=== PATIENT | female | born 1995 | race Caucasian/White ===

== ENCOUNTER 2020-02-09 12:22 | Emergency (ER) | payer BC, OTHER ==
[2020-02-09 12:40] VITALS: O2SAT 96
[2020-02-09] MEDS ORDERED: SODIUM CHLORIDE 0.9% 1000ML 1,000 ML IVS ONE (12:52)
[2020-02-09] MEDS ORDERED: ONDANSETRON INJ 4 MG/2 ML VIAL IV ONE ×2 (12:52→14:44)
--- NOTE | 2020-02-09 12:59 | ED.PDOC ---
History of Present Illness - General Chief Complaint: GI Problem Stated Complaint: nausea/vomiting Time Seen by Provider: 02/09/20 12:52 Information Source: patient Exam Limitations: no limitations - History of Present Illness Initial Comments: 24 yo F who presents for n/v and associated periumbilical abd pain described as cramping in nature, intermittent, no radiation. Remote hx of cholecystectomy. Denies f/c, cough, congestion, CP, SOB, diarrhea, constipation, urinary sx, COVID exposure. Review of Systems - Review of Systems Constitutional: Denies: chills, fever EENTM: Denies: blurred vision, double vision, nose congestion, throat pain Respiratory: Denies: cough, orthopnea, short of breath, wheezing Cardiology: Denies: chest pain, edema, palpitations, syncope Gastrointestinal/Abdominal: States: abdominal pain, nausea, vomiting. Denies: constipation, diarrhea Genitourinary: Denies: dysuria, frequency, hematuria Musculoskeletal: Denies: back pain, neck pain Skin: Denies: lesions, rash Neurological: Denies: headache, numbness, weakness Endocrine: Denies: increased thirst, increased urine Past Medical History (General) - Patient Medical History Hx Seizures: No Hx Stroke: No Hx Dementia: No Hx Asthma: No Hx of COPD: No Hx Cardiac Disorders: No Hx Congestive Heart Failure: No Hx Pacemaker: No Hx Hypertension: No Hx Thyroid Disease: No Hx Diabetes: Yes - gest diabetes Hx Gastroesophageal Reflux: No Hx Renal Disease: No Hx Cancer: No Hx of HIV: No Hx Hepatitis C: No Hx MRSA: No Surgical History: cholecystectomy - Vaccination History Hx Tetanus, Diphtheria Vaccination: Yes Hx Influenza Vaccination: No Hx Pneumococcal Vaccination: No - Social History Hx Tobacco Use: Yes Hx Chewing Tobacco Use: No Hx Alcohol Use: Yes Hx Substance Use: No Hx Substance Use Treatment: No Hx Depression: No Hx Physical Abuse: No Hx Emotional Abuse: No Hx Suspected Abuse: No - Activities of Daily Living Hospice Agency (if applicable):: None - Female History Hx Last Menstrual Period: 05/09/14 Patient : Yes Expected Date of Delivery:: 02/13/15 Family Medical History - Family History Father Name: Mauri Age (years): 52 Living Status: Still Living Hx Family Asthma: Yes Age of Onset (years of age): 50 Hx Family Congestive Heart Failure: No Hx Family Hypertension: No Hx Family Stroke: No Hx Cardiac Disease: No Hx Family Diabetes: Yes - type 2 Age of Onset (years of age): 52 Hx Family Cancer: No Grandparents Name: Nikky Age (years): 60 Living Status: Still Living Hx Family Asthma: Yes Age of Onset (years of age): unk Hx Cardiac Disease: Yes Age of Onset (years of age): 60 Hx Family Diabetes: Yes Age of Onset (years of age): 30 Mother Family History: No Known Name: Winter Gibbons Age (years): 42 Living Status: Still Living Hx Family Asthma: No Hx Family Congestive Heart Failure: No Hx Family Hypertension: Yes Age of Onset (years of age): unk Hx Family Stroke: No Hx Cardiac Disease: No Hx Family Diabetes: No Hx Family Cancer: Yes - Breast CA 1989, cervical CA 1993 Sister Name: chadd Age (years): 25 Living Status: Still Living Hx Family Cancer: Yes - hx of cevical cancer 2013 Age of Onset (years of age): 24 Physical Exam - Physical Exam General Appearance: Alert, Comfortable, No apparent distress, Well Developed, Well Nourished Eyes, Ears, Nose, Throat Exam: normal ENT inspection Neck: full range of motion, supple Respiratory: chest non-tender, lungs clear, normal breath sounds, no respiratory distress, no accessory muscle use Cardiovascular/Chest: normal peripheral pulses, regular rate, rhythm, no edema, no gallop, no JVD, no murmur Peripheral Pulses: No deficit Gastrointestinal/Abdominal: normal bowel sounds, non tender - mild periumbilical discomfort, soft, no organomegaly, no pulsatile mass Back Exam: normal inspection, no CVA tenderness, no vertebral tenderness Extremity: normal range of motion, non-tender, normal inspection, no pedal edema, no calf tenderness, normal capillary refill Neurologic: no motor/sensory deficits, alert, normal mood/affect, oriented x 3 Skin Exam: normal color, warm/dry Lymphatic: no adenopathy Progress - Progress Progress: 02/09/20 14:46 I have explained and reviewed all results with the pt. Pt is luna po, abd benign, well appearing. I explained that emergent conditions may arise and to return to the ER for new, worsening, or any persistent conditions. I've explained the importance of f/u for recheck in two days. All questions and concerns addressed at this time. Pt understands and agrees with plan. Pt well appearing, NAD, is stable for discharge. Darcie Evans MD Emergency Medicine Physician Billing Number [id number] - Results/Orders Results/Orders: 02/09/20 12:52 Hold Metformin x 48Hrs [id number] URINALYSIS Stat Laboratory Results - last 24 hr 02/09/20 02/09/20 02/09/20 13:09 13:09 13:09 WBC 9.9 RBC 5.27 Hgb 14.7 Hct 42.6 MCV 80.7 L MCH 27.8 MCHC 34.5 RDW 14.0 Plt Count 249 MPV 7.9 Absolute Neuts (auto) 6.80 Absolute Lymphs (auto) 2.40 Absolute Monos (auto) 0.50 Absolute Eos (auto) 0.10 Absolute Basos (auto) 0.10 Neutrophils % 68.5 Lymphocytes % 24.5 Monocytes % 4.6 Eosinophils % 1.5 Basophils % 0.9 Sodium 139 Potassium 3.8 Chloride 106 Carbon Dioxide 25 Anion Gap 11.8 L BUN 10 Creatinine 0.55 L BUN/Creatinine Ratio 18.2 Random Glucose 104 Serum Osmolality 276.9 Calcium 8.8 Total Bilirubin 0.7 AST 55 H ALT 85 H Alkaline Phosphatase 73 Serum Total Protein 7.8 Albumin 4.2 Globulin 3.6 H Albumin/Globulin Ratio 1.2 Lipase Serum HCG, Qual Negative Urine HCG, Qual Cancelled 02/09/20 13:09 WBC RBC Hgb Hct MCV MCH MCHC RDW Plt Count MPV Absolute Neuts (auto) Absolute Lymphs (auto) Absolute Monos (auto) Absolute Eos (auto) Absolute Basos (auto) Neutrophils % Lymphocytes % Monocytes % Eosinophils % Basophils % Sodium Potassium Chloride Carbon Dioxide Anion Gap BUN Creatinine BUN/Creatinine Ratio Random Glucose Serum Osmolality Calcium Total Bilirubin AST ALT Alkaline Phosphatase Serum Total Protein Albumin Globulin Albumin/Globulin Ratio Lipase 25 Serum HCG, Qual Urine HCG, Qual CT abd/pelvis: EXAM DESCRIPTION: Abdomen/Pelvis w/Contrast CLINICAL HISTORY: 24 years Female, pain TECHNIQUE: This exam was performed according to our departmental dose- optimization program, which includes automated exposure control, adjustment of the mA and/or kV according to patient size and/or use of iterative reconstruction technique. COMPARISON: None at time of initial interpretation. FINDINGS: Visualized lung bases are grossly unremarkable. Hepatic steatosis. No suspicious hepatic lesion. No biliary dilatation. Cholecystectomy. Portal vein is patent. The spleen, pancreas and adrenal glands are unremarkable. Symmetric renal parenchymal enhancement. No hydronephrosis. No urolithiasis. Unremarkable bladder. No suspicious adnexal lesion. No evidence of bowel obstruction or focal inflammatory change. No findings to suggest appendicitis. Normal appendix. No adenopathy. No focal fluid collection. No free air. Normal caliber abdominal aorta. No acute or suspicious osseous abnormality. Scattered degenerative changes present. IMPRESSION: No evidence of acute process in the abdomen or pelvis. Electronically signed by: Santana Santacruz MD 02/09/2020 2:09 PM CDT Vital Signs - 24 hr 02/09/20 02/09/20 02/09/20 12:39 13:30 14:00 Temperature 97.4 F L Pulse Rate [ 72 62 96 H brachial] Respiratory 16 20 20 Rate Blood Pressure 120/78 119/68 105/63 [Left Arm] O2 Sat by Pulse 96 96 96 Oximetry 02/09/20 15:00 Temperature 97.3 F L Pulse Rate [ 58 L brachial] Respiratory 22 Rate Blood Pressure 102/80 [Left Arm] O2 Sat by Pulse 96 Oximetry Departure - Departure Clinical Impression: Acute abdominal pain, Transaminitis Nausea & vomiting Qualifiers: Vomiting type: unspecified Vomiting Intractability: non-intractable Qualified Code(s): R11.2 - Nausea with vomiting, unspecified Time of Disposition: 14:45 Disposition: Discharge to Home or Self Care Health Concerns: condition:stable Departure Forms: ED Discharge - Pt. Copy, Patient Portal Self Enrollment Instructions: DI for Abdominal Pain-Adult Referrals: KYLEE ANTOINE [Primary Care Provider] - 1-2 Days Prescriptions: Ondansetron Odt [Zofran ODT] 4 mg PO Q6H PRN #12 tab PRN Reason: Nausea Home Medications: Ambulatory Orders Naproxen Sodium [Aleve] 220 mg PO Q8H #30 tab 02/12/15 Ondansetron Odt [Zofran ODT] 4 mg PO Q6H PRN #12 tab 02/09/20
--- NOTE | 2020-02-09 14:10 | CT ---
EXAM DESCRIPTION: Abdomen/Pelvis w/Contrast CLINICAL HISTORY: 24 years Female, pain TECHNIQUE: This exam was performed according to our departmental dose-optimization program, which includes automated exposure control, adjustment of the mA and/or kV according to patient size and/or use of iterative reconstruction technique. COMPARISON: None at time of initial interpretation. FINDINGS: Visualized lung bases are grossly unremarkable. Hepatic steatosis. No suspicious hepatic lesion. No biliary dilatation. Cholecystectomy. Portal vein is patent. The spleen, pancreas and adrenal glands are unremarkable. Symmetric renal parenchymal enhancement. No hydronephrosis. No urolithiasis. Unremarkable bladder. No suspicious adnexal lesion. No evidence of bowel obstruction or focal inflammatory change. No findings to suggest appendicitis. Normal appendix. No adenopathy. No focal fluid collection. No free air. Normal caliber abdominal aorta. No acute or suspicious osseous abnormality. Scattered degenerative changes present. IMPRESSION: No evidence of acute process in the abdomen or pelvis. Electronically signed by: Santana Santacruz MD 02/09/2020 2:09 PM CDT
[2020-02-09 15:29] VITALS: BP 102/80; TEMP 97.3
== END 2020-02-09 15:15 | disposition home or self-care (01) ==
LOC: ER 12:22
DX: R10.33 Periumbilical pain (principal); R74.0 Nonspecific elevation of levels of transaminase and lactic acid dehydrogenase [LDH]; F17.200 Nicotine dependence, unspecified, uncomplicated
CPT/HCPCS: 74177; 80053; 81001; 83690; 84703; 85025; 87077; 87086; 87186; J2405; J7030